=== PATIENT | female | born 1990 ===

== ENCOUNTER 2020-11-06 19:41 | Emergency (ER) | payer SELFPAY ==
[2020-11-06 20:00] VITALS: BP 161/109; PULSE 67; RESP 20; TEMP 36.4; O2SAT 96
--- NOTE | 2020-11-06 20:15 | PC.NURSE ---
RN watched pt. amb out of ed w/ steady gait. pt. in NAD.
--- NOTE | 2020-11-06 20:32 | PC.NURSE ---
Pt. called for triage x2 no answer.
--- NOTE | 2020-11-06 20:39 | PC.NURSE ---
1st call no answer @ 2031
== END 2020-11-06 21:17 | disposition left against medical advice (07) ==
DX: S61.019A Laceration without foreign body of unspecified thumb without damage to nail, initial encounter (principal)
CPT/HCPCS: 99199